=== PATIENT | male | born 1995 | race Caucasian/White ===

== ENCOUNTER 2017-12-11 22:19 | Emergency (ER) | payer BC ==
[2017-12-11 22:27] VITALS: TEMP 99.5
--- NOTE | 2017-12-11 22:28 | EDPHY ---
H & P HPI/ROS: HPI CHIEF COMPLAINT: Shoulder dislocation HISTORY OF PRESENT ILLNESS: Patient very pleasant 22-year-old male, is otherwise healthy denies having any significant medical history does not take any daily medications he presents emergency room with left shoulder discomfort. He states that he feels like his shoulder dislocated while playing basketball this evening. He is holding it had adducted to his chest. He denies any direct trauma falling on it. He is neurovascular intact. Denies numbness or tingling. Denies arm pain or elbow pain. Has mild discomfort to the left lateral shoulder. Axillary nerve intact. Past Medical History: Denies medical history, has had 1 previous left shoulder dislocation. Past Surgical History: Denies surgical history Social History: Denies daily use of drugs alcohol tobacco products. [employer] student. Family History: Noncontributory ROS REVIEW OF SYSTEMS: A comprehensive 10 point review of systems is otherwise negative aside from elements mentioned in the history of present illness. Exam Constitutional triage nursing summary reviewed, vital signs reviewed, awake/ alert. Eyes normal conjunctivae and sclera, EOMI, PERRLA. HENT normal inspection, atraumatic, moist mucus membranes, no epistaxis, neck supple/ no meningismus, no raccoon eyes. Respiratory clear to auscultation bilaterally, normal breath sounds, no respiratory distress, no wheezing. Cardiovascular rate normal, regular rhythm, no murmur, no edema, distal pulses normal. Gastrointestinal soft, non-tender, no rebound, no guarding, normal bowel sounds, no distension, no pulsatile mass. Genitourinary no CVA tenderness. Musculoskeletal LUE: Distally neurovascular intact good radial pulse. Good cap refill. Sensation intact. Axillary nerve intact. Cap refill normal. External exam left shoulder shows what appears to be an anterior shoulder dislocation. No evidence significant trauma on exam. no midline vertebral tenderness, full range of motion, no calf swelling, no tenderness of extremities , no meningismus, good pulses, neurovascularly intact. Skin pink, warm, & dry, no rash, skin atraumatic. Neurologic awake, alert and oriented x 3, AAOx3, moves all 4 extremities equally, motor intact, sensory intact, CN II-XII intact, normal cerebellar, normal vision, normal speech. Psychiatric normal mood/affect. Heme/Lymph/Immune no lymphadenopathy. Differential Diagnosis: Includes but is not limited to in a particular order shoulder dislocation, anterior shoulder dislocation, posterior shoulder dislocation, fracture Medical Decision Making: Plan for this patient will attempt reduction with gentle traction and manipulation to get what appears to be an anterior shoulder dislocation back in place. Re-evaluation: PROCEDURE: Shoulder Reduction. Patient was brought to ER room 1. In a seated position I applied gentle downward traction to his left upper extremity. Was able to externally rotated and was able to relocate the left shoulder. He tolerated this very well. Post reduction is neurovascular intact good left radial pulse. Good cap refill. Axillary nerve intact. Total Time of Procedure: 20 Minutes. X-ray was used to confirm good positioning of the shoulder reduction of left shoulder. Source: Patient Constitutional: Initial Vital Signs Temperature (C) 37.5 C 12/11/17 22:24 Heart Rate 106 H 12/11/17 22:24 Respiratory Rate 16 12/11/17 22:24 Blood Pressure 142/88 H 12/11/17 22:24 O2 Sat (%) 92 12/11/17 22:24 O2 Delivery Mode Room Air Allergies/Adverse Reactions: No Known Allergies Allergy (Unverified 12/11/17 22:27) Home Medications: Medication Instructions Recorded NK [No Known Home Meds] 12/11/17 Medical Decision Making - Data Points Medications Given: Discontinued Medications Ibuprofen (Motrin) 800 mg PO EDNOW ONE Stop: 12/11/17 22:31 Last Admin: 12/11/17 22:35 Dose: 800 mg Departure - Departure Disposition: Home, Routine, Self-Care Clinical Impression: Shoulder dislocation Qualifiers: Encounter type: initial encounter Laterality: left Qualified Code(s): S43.005A - Unspecified dislocation of left shoulder joint, initial encounter Condition: Good Instructions: Shoulder Dislocation (ED) Additional Instructions: 1. Stay in your sling for comfort. 2. Ice her shoulder. 3. Ibuprofen for pain control. 4. Follow up with Orthopedics. Referrals: NONE *PRIMARY CARE P,. [Primary Care Provider] - As per Instructions Paty Mcnulty MD [Medical Doctor] - As per Instructions
[2017-12-11] MEDS ORDERED: IBUPROFEN 800 MG TAB PO ONE (22:30)
[2017-12-11 22:40] VITALS: BP 138/84; PULSE 98; RESP 146; O2SAT 96
== END 2017-12-11 22:39 | disposition home or self-care (01) ==
PROC: 0RSKXZZ Reposition Left Shoulder Joint, External Approach (ICD-10-PCS; principal; 2017-12-11)
DX: S43.005A Unspecified dislocation of left shoulder joint, initial encounter (principal); X58.XXXA Exposure to other specified factors, initial encounter; Y93.67 Activity, basketball